=== PATIENT | male | born 1970 | race Caucasian/White ===

== ENCOUNTER 2024-08-28 10:45 | Outpatient (CLI) | payer OTHER ==
[~2024-08-28 10:45] MED LIST: ULTRAM50 MG PO
== END 2024-08-28 14:10 | disposition home or self-care (01) ==
LOC: MRI 10:45
PROVIDERS: ATTEND General Practice
DX: M25.562 Pain in left knee (principal); G89.29 Other chronic pain; E66.9 Obesity, unspecified
CPT/HCPCS: 73721

== ENCOUNTER 2024-12-16 05:41 | Day surgery (SDC) | payer OTHER ==
[2024-12-05 12:21] VITALS: BP 145/93
[2024-12-06 11:20] LABS: HEMOGLOBIN 14.1 g/dL (13-16.00); MEAN CELL VOLUME 87.5 fL (80.0-100.00); MEAN CORPUSCULAR HEMOGLOBIN 30.1 pg (27.00-32.0); MEAN CORPUSCULAR HGB CONC 34.4 g/dl (32.0-36.0); PLATELET COUNT 197 K/uL (150-450); RED BLOOD COUNT 4.69 M/uL (4.00-6.00); RED CELL DISTRIBUTION WIDTH 14.9 % (11.5-14.5)
[2024-12-06 11:58] LABS: INR 1.08; PARTIAL THROMBOPLASTIN TIME 29.6 SECONDS (22.0-34.0); PROTHROMBIN TIME 11.7 SECONDS (9.0-11.5)
[2024-12-06 12:21] LABS: URINE BACTERIA 6.1 uL (0.0-1933); URINE EPITHELIAL CELLS 1.4 uL (0.0-38.8)
[2024-12-06 12:23] LABS: URINE APPEARANCE CLEAR; URINE BILIRRUBIN NEGATIVE (NEGATIVE); URINE CAST 0.44 uL (0.0-1.40); URINE COLOR YELLOW; URINE GLUCOSE NEGATIVE (NEGATIVE); URINE KETONE NEGATIVE (NEGATIVE); URINE RBC 1.9 uL (0.0-20.8); URINE WBC 1.4 uL (0.0-23.2)
[2024-12-06 12:24] LABS: PH,URINE 7.5 (5.0-8.0); URINE BLOOD NEGATIVE; URINE LEUKOCYTE NEGATIVE; URINE NITRATE NEGATIVE; URINE PROTEIN NEGATIVE (NEGATIVE); URINE UROBILINOGEN 0.2 E.U./dl
[2024-12-06 12:39] LABS: ALBUMIN 3.9 gm/dL (3.4-5.0); BILIRUBIN TOTAL 0.63 mg/dL (0.3-1.2); CALCIUM 9.7 mg/dL (8.5-10.1); CHOL HDL RATIO 2.7 (0-5.0); CREATININE SERUM 0.92 mg/dL (0.70-1.30); GFR 85.41; GLOBULINA 3.1 G/DL (2.4-3.5); POTASSIUM 4.31 mEq/L (3.5-5.1)
[~2024-12-16] VITALS: Ht 175.3 cm; Wt 124.7 kg
[~2024-12-16 05:41] MED LIST changes: +ATACAND16 MG PO; +PROTONIX40 MG PO
[2024-12-16] MEDS ORDERED: LIDOCAINE HCL 1%/EPINEPHRINE 20ML VIAL IJ ONE (12:06)
[2024-12-16] MEDS ORDERED: METHYLPREDNISOLONE ACETATE 80 MG/ML VIAL ONE (12:06)
[2024-12-16] MEDS ORDERED: DUI500 PO (13:07)
[2024-12-16] MEDS ORDERED: TRAM1TAB98 PO (13:07)
[2024-12-16] MEDS ORDERED: ASA325 M1 PO (13:07)
== END 2024-12-16 17:15 | disposition home or self-care (01) ==
LOC: CIR.AMB 05:41
PROVIDERS: ATTEND Orthopaedic Surgery
DX: S83.232A Complex tear of medial meniscus, current injury, left knee, initial encounter (principal); M67.362 Transient synovitis, left knee; M94.262 Chondromalacia, left knee; M23.42 Loose body in knee, left knee; E66.09 Other obesity due to excess calories; I10 Essential (primary) hypertension